=== PATIENT | female | born 1955 | race Caucasian/White ===

== ENCOUNTER 2017-11-09 12:16 | Emergency (ER) | payer BC ==
[2017-11-09 12:23] VITALS: BMI 26.5
[2017-11-09 12:36] LABS: BASO # 0.03 K/mm3 (0.0-2.0); BASO % 0.6 % (0.0-3.0); EOS # 0.2 (0.0-0.7); GRAN # 3.04 (1.4-6.5); GRAN % 58.3 % (50.0-68.0); HEMOGLOBIN 13.8 g/dL (12.0-16.0); LYMPH # 1.6 (1.2-3.4); LYMPH % 29.8 % (22.0-35.0); MEAN CELL VOLUME 88.2 fl (80.0-105.0); MEAN CORPUSCULAR HEMOGLOBIN 29.6 pg (25.0-35.0); MEAN CORPUSCULAR HGB CONC 33.5 g/dl (31.0-37.0); MEAN PLATELET VOLUME 9.2 fl (7.0-11.0); MONO # 0.4 (0.1-0.6); MONO % 7.3 % (1.0-6.0); RBC 4.67 10^6/uL (3.5-6.1); RED CELL DISTRIBUTION WIDTH 12.7 % (11.5-14.5); WHITE BLOOD COUNT 5.2 10^3/ul (4.5-11.0)
[2017-11-09 12:48] LABS: ALB/GLOB RATIO 1.5 (1.1-1.8); ALBUMIN 4.3 g/dL (3.0-4.8); ALT/SGPT 92 U/L (7-56); AST/SGOT 46 U/L (14-36); BLOOD UREA NITROGEN 14 mg/dL (7-21); GFR AFRICAN-AMERICAN > 60; GFR NON-AFRICAN AMERICAN > 60
--- NOTE | 2017-11-09 12:50 | ED PDOC ---
Arrival/HPI - General Chief Complaint: Chest Pain Time Seen by Provider: 11/09/17 12:25 Historian: Patient - History of Present Illness Narrative History of Present Illness (Text): 11/09/17 12:41 A 62 year old female, whose past medical history includes anxiety, presents to the emergency department for intermittent chest tightness and shortness of breath, which began 3 days ago. The patient reports the tightness and discomfort radiates from her left arm up to her jaw. She has had this similar shortness of breath in the past and her doctor states it could be from the medication that she is on. The patient denies any chest pain, fever, sweats, abdominal pain, or any other complaints at this time. Time/Duration: < week (x 3 days ) Symptom Onset: Gradual Symptom Course: Intermittent Quality: Pressure, Tightness Activities at Onset: Light Context: Sitting, Standing, Walking, Home Past Medical History - Provider Review Nursing Documentation Reviewed: Yes - Infectious Disease Hx of Infectious Diseases: None - Reproductive Menopause: Yes - Cardiac Hx Hypertension: Yes - Neurological Hx Neurological Disorder: No - Psychiatric Hx Substance Use: No - Surgical History Hx Section: Yes - Anesthesia Hx Anesthesia: No Hx Anesthesia Reactions: No Hx Malignant Hyperthermia: No Family/Social History - Physician Review Nursing Documentation Reviewed: Yes Family/Social History: No Known Family HX Smoking Status: Never Smoked Hx Alcohol Use: No Hx Substance Use: No Allergies/Home Meds Allergies/Adverse Reactions: Allergies bupropion [From Wellbutrin] Allergy (Verified 11/09/17 12:26) SWELLING schuyler Allergy (Verified 11/09/17 12:27) SWELLING eggplant Allergy (Uncoded 11/09/17 12:26) SWELLING papaya Allergy (Uncoded 11/09/17 12:27) SWELLING Home Medications: Home Meds Medication Instructions Recorded Confirmed Atenolol 25 mg PO DAILY 09/09/15 09/18/15 Review of Systems - Review of Systems Constitutional: absent: Fevers Respiratory: SOB Cardiovascular: Other (chest tightness ). absent: Chest Pain Gastrointestinal: absent: Nausea Physical Exam Vital Signs Reviewed: Yes Vital Signs Temp Pulse Resp BP Pulse Ox 11/09/17 14:26 61 18 132/76 98 11/09/17 13:24 65 20 119/63 98 11/09/17 12:17 97.9 F 62 20 134/69 99 Temperature: Afebrile Blood Pressure: Normal Pulse: Regular Respiratory Rate: Normal Appearance: Positive for: Well-Appearing, Non-Toxic, Comfortable Pain Distress: None Mental Status: Positive for: Alert and Oriented X 3 - Systems Exam Head: Present: Atraumatic, Normocephalic Pupils: Present: PERRL Extroacular Muscles: Present: EOMI Conjunctiva: Present: Normal Mouth: Present: Moist Mucous Membranes Neck: Present: Normal Range of Motion Respiratory/Chest: Present: Clear to Auscultation, Good Air Exchange. No: Respiratory Distress, Accessory Muscle Use Cardiovascular: Present: Regular Rate and Rhythm, Normal S1, S2. No: Murmurs Abdomen: Present: Normal Bowel Sounds. No: Tenderness, Distention, Peritoneal Signs Back: Present: Normal Inspection Upper Extremity: Present: Normal Inspection. No: Cyanosis, Edema Lower Extremity: Present: Normal Inspection. No: Edema Neurological: Present: GCS=15, CN II-XII Intact, Speech Normal Skin: Present: Warm, Dry, Normal Color. No: Rashes Psychiatric: Present: Alert, Oriented x 3, Normal Insight, Normal Concentration Medical Decision Making ED Course and Treatment: 11/09/17 12:40 Progress Notes: EKG: Ordered, reviewed, and independently interpreted the EKG. Rate : 65 BPM Rhythm : NSR Interpretation : No ST-segment elevations or depressions, no T-wave inversions, normal intervals, No acute ischemia. 11/09/17 12:58 Chest X-ray: No acute process. 11/09/17 15:01 I did rec that the pt stay for further eval of chest pain. I explained my concern that this pain may be caused by a heart condition which may result in sudden if not diagnosed. She voiced understanding but still does not wish to stay. She agreed to stay for a second 3-hour trop. She will f/u w her pmd tomorrow. - Lab Interpretations Lab Results: 11/09/17 12:20 11/09/17 12:20 Lab Results 11/09/17 15:00: Troponin I < 0.01 11/09/17 13:31: D-Dimer, Quantitative < 200 11/09/17 12:20: Sodium 141, Potassium 4.0, Chloride 108 H, Carbon Dioxide 22, Anion Gap 15, BUN 14, Creatinine 0.6 L, Est GFR ( Amer) > 60, Est GFR ( Non-Af Amer) > 60, Random Glucose 90, Calcium 10.0, Total Bilirubin 0.5, AST 46 H D, ALT 92 H, Alkaline Phosphatase 77, Lactate Dehydrogenase 423, Total Creatine Kinase 73, Troponin I < 0.01, Total Protein 7.0, Albumin 4.3, Globulin 2.8, Albumin/Globulin Ratio 1.5 11/09/17 12:20: PT 10.6, INR 0.96, APTT 33.7 11/09/17 12:20: WBC 5.2, RBC 4.67, Hgb 13.8, Hct 41.2, MCV 88.2, MCH 29.6, MCHC 33.5, RDW 12.7, Plt Count 187, MPV 9.2, Gran % 58.3, Lymph % (Auto) 29.8, [place] % (Auto) 7.3 H, Eos % (Auto) 4.0, Baso % (Auto) 0.6, Gran # 3.04, Lymph # 1.6, [place] # 0.4, Eos # 0.2, Baso # 0.03 - RAD Interpretation Radiology Orders: 11/09/17 12:27 CHEST PORTABLE [RAD] Stat - Medication Orders Current Medication Orders: Discontinued Medications Aspirin (Aspirin Chewable) 324 mg PO STAT STA Stop: 11/09/17 12:57 Last Admin: 11/09/17 13:04 Dose: 324 mg - Scribe Statement The provider has reviewed the documentation as recorded by the Danny Akhtar Provider Scribe Attestation: All medical record entries made by the Danny were at my direction and personally dictated by me. I have reviewed the chart and agree that the record accurately reflects my personal performance of the history, physical exam, medical decision making, and the department course for this patient. I have also personally directed, reviewed, and agree with the discharge instructions and disposition. Disposition/Present on Arrival - Present on Arrival Any Indicators Present on Arrival: No History of DVT/PE: No History of Uncontrolled Diabetes: No Urinary Catheter: No History of Decub. Ulcer: No History Surgical Site Infection Following: None - Disposition Have Diagnosis and Disposition been Completed?: Yes Diagnosis: Chest pain Disposition: HOME/ ROUTINE Disposition Time: 14:58 Patient Problems: Current Active Problems Problem Status Onset Chest pain Acute Condition: GOOD Discharge Instructions (ExitCare): Chest Pain (ED) Additional Instructions: Please follow up with your doctor tomorrow. Return to the ER for any worsening symptoms or for any other concerns. Referrals: Yevgeniy Everett MD [Family Provider] - Follow up with primary Forms: [employer] (Kiswahili)
[2017-11-09 12:51] LABS: INR 0.96 (0.93-1.08); PARTIAL THROMBOPLASTIN TIME 33.7 Seconds (25.1-36.5); PROTHROMBIN TIME 10.6 SECONDS (9.4-12.5)
[2017-11-09 13:02] LABS: TROPONIN I < 0.01 ng/mL
--- NOTE | 2017-11-09 13:10 | RAD ---
HISTORY: chest pain COMPARISON: No prior. FINDINGS: LUNGS: Minor left basilar atelectasis PLEURA: No significant pleural effusion identified, no pneumothorax apparent. CARDIOVASCULAR: Normal. OSSEOUS STRUCTURES: No significant abnormalities. VISUALIZED UPPER ABDOMEN: Normal. OTHER FINDINGS: None. IMPRESSION: Minor left basilar atelectasis
[2017-11-09 13:25] VITALS: O2SAT 98
[2017-11-09 14:27] VITALS: RESP 18
[2017-11-09 17:18] VITALS: BP 123/72; PULSE 63; TEMP 98
--- NOTE | 2017-11-10 09:54 | CARD ---
APPROVED REPORT EKG Measurement Heart [id number] <Conclusion> Normal sinus rhythm Normal ECG
== END 2017-11-09 17:00 | disposition home or self-care (01) ==
LOC: ED 12:16
DX: R07.9 Chest pain, unspecified (principal); I10 Essential (primary) hypertension

== ENCOUNTER 2018-02-27 11:00 | Emergency (ER) | payer BC ==
[2018-02-27 11:02] VITALS: BMI 25.2
[2018-02-27] MEDS ORDERED: Bacitracin 500 Units/gm Oint Foilpak UD TOP STA (12:01)
--- NOTE | 2018-02-27 12:09 | ED PDOC ---
Arrival/HPI <Matty Cai - Last Filed: 02/27/18 14:31> - General Historian: Patient - History of Present Illness Time/Duration: 1 hour Severity Level: Moderate Context: Walking, Street <Marguerite Cristobal - Last Filed: 02/27/18 14:39> - General Chief Complaint: Trauma Time Seen by Provider: 02/27/18 11:11 - History of Present Illness Narrative History of Present Illness (Text): 02/27/18 12:04 62 yo F with PMH of HTN and anxiety presents after a fall. Patient was walking to her car, carrying some laundry, and tripped on a bump in the sidewalk. She fell and hit her knees, palms, left arm/shoulder, and left face/head. She denies any prodrome/aura, dizziness, lightheadedness, confusion, vision changes , tinnitus, hearing loss, sudden focal weakness/numbness/parasthesia, chest pain , palpitations, shortness of breath, loss of consciousness. She did not lose consciousness after the fall, and did not have any confusion. Currently denies neck pain. She did have transient nausea and dizziness after the fall. Patient takes aspirin for primary prevention. She is now complaining of left head/face pain, bilateral knee pain R>L, bilateral hand pain L>R, left shoulder and arm pain. is at bedside, reports that she is acting/talking/behaving normally. 02/27/18 12:09 (Marguerite Cristobal) Past Medical History - Provider Review Nursing Documentation Reviewed: Yes <Matty Cai - Last Filed: 02/27/18 14:31> - Provider Review Nursing Documentation Reviewed: Yes - Travel History Have you recently traveled outside [place] w/in the past 3 mons?: No - Infectious Disease Hx of Infectious Diseases: None - Tetanus Immunization Tetanus Immunization: Up to Date - Reproductive Menopause: Yes - Cardiac Hx Hypertension: Yes - Neurological Hx Neurological Disorder: No - Psychiatric Hx Substance Use: No - Surgical History Hx Section: Yes - Anesthesia Hx Anesthesia: No Hx Anesthesia Reactions: No Hx Malignant Hyperthermia: No <Marguerite Cristobal - Last Filed: 02/27/18 14:39> - Patient History Narrative Patient History: HTN, Anxiety (Marguerite Cristobal) Family/Social History - Physician Review Nursing Documentation Reviewed: Yes <Matty Cai - Last Filed: 02/27/18 14:31> - Physician Review Nursing Documentation Reviewed: Yes Family/Social History: Unknown Family HX Smoking Status: Never Smoked Hx Alcohol Use: No Hx Substance Use: No <Marguerite Cristobal - Last Filed: 02/27/18 14:39> Allergies/Home Meds <Veronica Caiin - Last Filed: 02/27/18 14:31> <Marguerite Cristobal - Last Filed: 02/27/18 14:39> Allergies/Adverse Reactions: Allergies bupropion [From Wellbutrin] Allergy (Verified 11/09/17 12:26) SWELLING schuyler Allergy (Verified 11/09/17 12:27) SWELLING eggplant Allergy (Uncoded 11/09/17 12:26) SWELLING papaya Allergy (Uncoded 11/09/17 12:27) SWELLING Home Medications: Home Meds Medication Instructions Recorded Confirmed Atenolol 25 mg PO DAILY 09/09/15 09/18/15 Aspirin [Ecotrin] 81 mg PO DAILY 02/27/18 02/27/18 Review of Systems - Review of Systems Constitutional: Normal Eyes: Normal ENT: Normal Respiratory: Normal Cardiovascular: Normal Gastrointestinal: Normal Genitourinary Female: Normal Musculoskeletal: Arthralgias, Myalgias Skin: Normal Neurological: Normal Endocrine: Normal Hemo/Lymphatic: Normal Psychiatric: Normal <Marguerite Cristobal - Last Filed: 02/27/18 14:39> Physical Exam Vital Signs Reviewed: Yes Temperature: Afebrile Blood Pressure: Normal Pulse: Regular Respiratory Rate: Normal Appearance: Positive for: Well-Appearing, Non-Toxic, Comfortable Pain Distress: Mild Mental Status: Positive for: Alert and Oriented X 3 - Systems Exam Head: Present: Atraumatic, Normocephalic. No: Contusion, Ecchymosis, Abrasion Pupils: Present: PERRL Extroacular Muscles: Present: EOMI. No: Entrapment Conjunctiva: Present: Normal Mouth: Present: Moist Mucous Membranes Nose (External): Present: Atraumatic. No: Abrasion, Contusion Neck: Present: Normal Range of Motion. No: MIDLINE TENDERNESS Respiratory/Chest: Present: Clear to Auscultation, Good Air Exchange. No: Respiratory Distress, Accessory Muscle Use Cardiovascular: Present: Regular Rate and Rhythm, Normal S1, S2, Peripheal Pulses Present (symmetric) Abdomen: Present: Normal Bowel Sounds. No: Tenderness, Distention Back: No: Midline Tenderness Upper Extremity: Present: Normal Inspection, NORMAL PULSES, Tenderness (Left shoulder, left humerus, left distal radius), Other (No snuffbox tenderness). No : Cyanosis, Edema Lower Extremity: Present: NORMAL PULSES, Tenderness (Bilateral knees, R>L). No : Normal Inspection (Abrasions over bilateral anterior knees), Edema, CALF TENDERNESS Neurological: Present: GCS=15, CN II-XII Intact, Speech Normal Skin: Present: Warm, Dry, Normal Color, Abrasion (Bilateral knees, bilateral palms) Psychiatric: Present: Alert, Oriented x 3, Normal Insight, Normal Concentration <Marguerite Cristobal - Last Filed: 02/27/18 14:39> Medical Decision Making <Matty Cai - Last Filed: 02/27/18 14:31> - RAD Interpretation User Experience Analyst: Radiologist <Marguerite Cristobal - Last Filed: 02/27/18 14:39> ED Course and Treatment: 02/27/18 14:31 Patient Seen With Resident: In agreement with resident note which contains more details about the patient. Patient was seen and evaluated with resident. Came up with plan and treatment together.. (Matty Cai) 02/27/18 12:13 Impression Trauma s/p mechanical fall; knee pain, facial pain, shoulder pain, wrist pain Differential diagnosis includes, but is not limited to - ICH - Contusions - Fractures Plan - Head CT - CXR - Left shoulder XR - Left humerus XR - Left wrist XR - Bilateral knee XR - Tylenol for pain - Bacitracin topical for abrasions - Reasses and dispo Progress Note 02/27/18 14:22 - Head CT negative - Left shoulder XR shows minimally displaced fracture of the humeral head - Remainder of XR's negative - Pain persists despite tylenol - Applied shoulder immobilizer - Patient instructed to follow up with orthopedic doctor within 3-5 days; patient follows with Dr. Govea - Discharged home with 5 day supply of tramadol. - Instructed to return to ER for any new or worsening concerns (Marguerite Cristobal) - RAD Interpretation Radiology Orders: 02/27/18 11:42 HEAD W/O CONTRAST [CT] Stat CHEST ONE VIEW FALL PROTOCOL [RAD] Stat HUMERUS LEFT [RAD] Stat KNEES BILATERAL [RAD] Stat SHOULDER LEFT [RAD] Stat 02/27/18 12:00 WRIST, LEFT 3 VIEWS [RAD] Stat - Medication Orders Current Medication Orders: Discontinued Medications Acetaminophen (Tylenol 325mg Tab) 650 mg PO STAT STA Stop: 02/27/18 12:02 Last Admin: 02/27/18 12:49 Dose: 650 mg MAR Pain/Vitals Document 02/27/18 12:49 [email or web address] (Rec: 02/27/18 12:56 [email or web address] [id number] [employer]) Pain Reassessment Is This A Pain ReAssessment? No Sleep Is patient sleeping during reassessment? No Presence of Pain Presence of Pain Yes Pain Scale Used Pain Scale Used Numeric Location Pain Location Body Site Generalized Description Constant Intensity 6 Scale Used Numeric Pain Behavior Facial Grimacing Aggravating Factors Changing Position Alleviating Factors Medication Bacitracin (Bacitracin) 2 ea TOP STAT STA Stop: 02/27/18 12:02 Last Admin: 02/27/18 12:56 Dose: 2 ea - PA / WAREHOUSE ASSOCIATE / Resident Statement MD/DO has reviewed & agrees with the documentation as recorded. - Scribe Statement The provider has reviewed the documentation as recorded by the Scribe <Matty Cai - Last Filed: 02/27/18 14:31> <Marguerite Cristobal - Last Filed: 02/27/18 14:39> - Scribe Statement Carolina Arnold All medical record entries made by the Scribe were at my direction and personally dictated by me. I have reviewed the chart and agree that the record accurately reflects my personal performance of the history, physical exam, medical decision making, and the department course for this patient. I have also personally directed, reviewed, and agree with the discharge instructions and disposition. (Matty Cai) Disposition/Present on Arrival <Matty Cai - Last Filed: 02/27/18 14:31> - Present on Arrival Any Indicators Present on Arrival: No History of DVT/PE: No History of Uncontrolled Diabetes: No Urinary Catheter: No History of Decub. Ulcer: No History Surgical Site Infection Following: None - Disposition Have Diagnosis and Disposition been Completed?: Yes Disposition Time: 14:25 Patient Plan: Discharge <Marguerite Cristobal - Last Filed: 02/27/18 14:39> - Disposition Diagnosis: Fall, Fracture of humeral head, left, closed Disposition: HOME/ ROUTINE Patient Problems: Current Active Problems Problem Status Onset Fall Acute Fracture of humeral head, left, closed Acute Condition: GOOD Discharge Instructions (ExitCare): Shoulder Fracture (DC) Additional Instructions: - Use the pain medication every 8 hours as needed; do not drive while taking the pain medication - Keep the arm immobilized until you are able to see Dr. Govea - Return to the ER for any new or worsening concerns Prescriptions: traMADol [Ultram] 50 mg PO TID PRN #15 tab PRN Reason: Pain, Moderate (4-7) Forms: [employer] (South African)
--- NOTE | 2018-02-27 12:37 | CT ---
PROCEDURE: CT HEAD WITHOUT CONTRAST. HISTORY: Fall COMPARISON: None available. TECHNIQUE: Axial computed tomography images were obtained through the head/brain without intravenous contrast. Radiation dose: Total exam DLP = 890.24 mGy-cm. This CT exam was performed using one or more of the following dose reduction techniques: Automated exposure control, adjustment of the mA and/or kV according to patient size, and/or use of iterative reconstruction technique. FINDINGS: HEMORRHAGE: No acute parenchymal, subarachnoid or extra-axial hemorrhage. BRAIN: Very minor diffuse/ confluent chronic periventricular white matter ischemic changes felt to be present. Questionable artifact versus tiny chronic lacunar-type infarct anterior limb right internal capsule. . No obvious parenchymal nor extra-axial masses or collections identified on this noncontrast study. Minor vascular calcifications both carotid siphons. VENTRICLES: No obstructive hydrocephalus. CALVARIUM: Unremarkable. PARANASAL SINUSES: Minor mucosal thickening noted within the ethmoid air complex with minimal mucosal thickening sphenoid sinus. MASTOID AIR CELLS: Unremarkable as visualized. No inflammatory changes. OTHER FINDINGS: None. IMPRESSION: No acute intracranial hemorrhage. Minor chronic periventricular white matter ischemic changes.
--- NOTE | 2018-02-27 13:55 | RAD ---
PROCEDURE: Radiographs of the left humerus. HISTORY: Fall COMPARISON: Correlation made with concurrent radiographs left shoulder. FINDINGS: BONES: There is a minimally displaced fracture of the left humeral head seen to better advantage on concurrent radiographs of the left shoulder. Note also made of made of 80 small round/elliptical shaped sclerotic focus within the right humeral head possibly representing a bone island or osteoma. SOFT TISSUES: Normal. OTHER FINDINGS: None. IMPRESSION: Minimally displaced fracture of the left humeral head. Note that the emergency room resident Dr Cristobal informed these findings at approximately 1:51 p.m. with written down and read back verification.
--- NOTE | 2018-02-27 13:55 | RAD ---
PROCEDURE: Radiographs of the Left Shoulder HISTORY: Fall COMPARISON: Correlation made with concurrent radiographs of the left humerus FINDINGS: BONES: There is a minimally displaced fracture of the left humeral head seen to better advantage on concurrent radiographs of the left shoulder. Note also made of made of 80 small round/elliptical shaped sclerotic focus within the right humeral head possibly representing a bone island or osteoma. JOINTS: Normal. Glenohumeral and acromioclavicular joints preserved. No osteoarthritis. SOFT TISSUES: Normal. OTHER FINDINGS: None. IMPRESSION: There is a minimally displaced fracture of the left humeral head seen to better advantage on concurrent radiographs of the left shoulder.
--- NOTE | 2018-02-27 13:58 | RAD ---
PROCEDURE: CHEST RADIOGRAPH, 1 VIEW HISTORY: Fall COMPARISON: None available. FINDINGS: LUNGS: Minor linear atelectasis and/or scarring changes left CP angle region PLEURA: No pneumothorax or pleural fluid seen. CARDIOVASCULAR: Normal. OSSEOUS STRUCTURES: No significant abnormalities. VISUALIZED UPPER ABDOMEN: Normal. OTHER FINDINGS: None. IMPRESSION: Minor linear atelectasis and/or scarring changes left CP angle region
--- NOTE | 2018-02-27 14:01 | RAD ---
PROCEDURE: Left Wrist Radiographs. HISTORY: fall COMPARISON: None. FINDINGS: BONES: No evidence of acute displaced fracture nor dislocation. Osseous structures appear intact. Benign-appearing cystic changes seen within the greater multangular JOINTS: No significant osteoarthritis SOFT TISSUES: Normal. OTHER FINDINGS: None. IMPRESSION: No evidence of acute displaced fracture nor dislocation. If symptoms persist or occult fracture suspected clinically recommend repeat radiographs in 7-10 days as most fractures should become radiographically evident in this timeframe. . Nonspecific benign-appearing cystic changes within the greater multangular.
--- NOTE | 2018-02-27 14:03 | RAD ---
PROCEDURE: Bilateral Knee Radiographs. HISTORY: Fall COMPARISON: None. FINDINGS: BONES: Right Knee: Normal. No fracture. Left Knee: Normal. No fracture. Small cluster of well-circumscribed sclerotic foci seen within the distal femoral diaphysis nonspecific though could represent an incidental bone islands or osteomas. Tiny enchondroma not excluded. Follow-up radiographs at 3 month interval could be performed to assess stability if necessary.. There may also be a tiny sclerotic foci within the distal lateral femoral metaphysis JOINTS: Right Knee: Normal. No osteoarthritis. Left knee: Normal. No osteoarthritis. SOFT TISSUES: Right Knee: Normal. Left Knee: Normal. JOINT EFFUSION: Right Knee: None. Left Knee: None. OTHER FINDINGS: None. IMPRESSION: No acute fractures. No significant degenerative spondylosis. See above discussion for additional details, findings and recommendations.
[2018-02-27 14:41] VITALS: BP 128/72; PULSE 80; RESP 19; TEMP 98.4
[2018-02-27 15:11] VITALS: O2SAT 99
== END 2018-02-27 15:12 | disposition home or self-care (01) ==
LOC: ED 11:00
DX: S42.302A Unspecified fracture of shaft of humerus, left arm, initial encounter for closed fracture (principal); W01.0XXA Fall on same level from slipping, tripping and stumbling without subsequent striking against object, initial encounter; Y92.480 Sidewalk as the place of occurrence of the external cause